=== PATIENT | male | born 2000 ===

== ENCOUNTER 2021-04-12 20:08 | Emergency (ER) | payer SELFPAY ==
[2021-04-12 20:45] VITALS: BP 121/66; PULSE 70; RESP 16; TEMP 36.6; O2SAT 100; BMI 22.4
[2021-04-12 21:26] LABS: COVID19 - ADMIT (NP swab/PCR) Negative (Negative)
--- NOTE | 2021-04-12 21:51 | ED.RECABL ---
HPI - Recheck/Abnormal Lab/Rx General Chief Complaint: Recheck/Abnormal Lab/Rx Stated Complaint: wants covid test for travel Time Seen by Provider: 04/12/21 21:49 Source: patient Mode of arrival: Ambulatory Limitations: no limitations History of Present Illness HPI narrative: Patient is a 20-year-old male without any symptoms who is fully immunized for COVID-19 here stating that he needs a COVID-19 test in order to re-enter [place] Related Data Allergies Allergy/AdvReac Type Severity Reaction Status Date / Time No Known Drug Allergies Allergy Verified 04/12/21 20:45 Review of Systems Constitutional Comments: No fevers Respiratory Comments: No cough shortness of breath Gastrointestinal Comments: No abdominal pain or vomiting Integumentary/Breasts Comments: No rashes Patient History Medical History Healthy adult Social History Smoking Status: Never smoker Smoking Status: Never smoker alcohol intake frequency: holidays/special occasions only Substance Use Type: does not use Exam Initial Vital Signs Initial Vital Signs: Vital Signs Temperature 97.9 F 04/12/21 20:45 Pulse Rate 70 04/12/21 20:45 Respiratory Rate 16 04/12/21 20:45 Blood Pressure 121/66 04/12/21 20:45 Pulse Oximetry 100 04/12/21 20:45 Const General: cooperative and healthy appearing [facility] Head: normal to inspection Resp Effort & Inspection: normal respiratory effort Skin General: no rashes or lesions noted Neuro General: patient alert, patient awake, patient oriented x3 and moves all extremities Extrem General: normal to inspection Psych Appearance: grossly normal and well kempt Course Orders Ordered: ED Orders 04/12/21 20:11 COVID19 - ADMIT ([employer] swab/PCR) Stat Vital Signs Vital signs: Vital Signs - 8 hr 04/12/21 20:45 Temperature 97.9 F Pulse Rate 70 Respiratory Rate 16 Blood Pressure 121/66 Pulse Oximetry 100 MDM - Recheck/Abnormal Lab/Rx Lab Data Labs: Lab Results 04/12/21 Range/Units 20:11 SARS-CoV-2 (PCR) Negative (Negative) MDM Narrative Medical decision making narrative: Asymptomatic, COVID-19 test was negative and he was provided the results of this. Discharge Plan Departure Patient Disposition: Home Clinical Impression: Encounter for laboratory testing for COVID-19 virus Activity Restrictions/Additional Instructions: Your COVID test was negative
== END 2021-04-12 22:23 | disposition home or self-care (01) ==
PROVIDERS: Emergency Provider Emergency Medicine
DX: Z20.822 Contact with and (suspected) exposure to COVID-19 (principal)
CPT/HCPCS: 87635; 99281; C9803